=== PATIENT | female | born 1960 | race Caucasian/White ===

== ENCOUNTER 2021-08-04 08:12 | Day surgery (SDC) | payer MEDICAID, OTHER ==
[~2021-08-04 08:12] MED LIST: Lactated Ringers 1,000 ML IV SCH
[2021-08-04] MEDS ORDERED: Midazolam 1 MG/ML 2 ML SDV ONE (09:57)
[2021-08-04] MEDS ORDERED: fentaNYL 100 MCG/2 ML SDV ONE (09:58)
[2021-08-04] MEDS ORDERED: Propofol 200 MG/20 ML SDV ONE (09:58)
[2021-09-01] MEDS ORDERED: Lactated Ringers 1,000 ML IV SCH (07:00)
== END 2021-08-04 11:50 | disposition home or self-care (01) ==
LOC: VM.SDS 08:12
PROVIDERS: ATTEND Student in an Organized Health Care Education/Training Program
DX: Z12.11 Encounter for screening for malignant neoplasm of colon (principal); D12.0 Benign neoplasm of cecum; D12.2 Benign neoplasm of ascending colon; Z80.0 Family history of malignant neoplasm of digestive organs; Z79.899 Other long term (current) drug therapy; Z88.5 Allergy status to narcotic agent; Z88.1 Allergy status to other antibiotic agents; Z98.890 Other specified postprocedural states; Z87.891 Personal history of nicotine dependence
CPT/HCPCS: 00812; J2250; J2704; J3010; J7120

== ENCOUNTER 2023-05-28 11:15 | Emergency (ER) | payer MEDICARE, BC ==
[2023-05-28 11:50] LABS: BASOPHILS PERCENT AUTO 0.8 % (0.2-1.2); EOSINOPHILS ABSOLUTE AUTO 0.1 x10^3/uL (0.0-0.5); EOSINOPHILS PERCENT AUTO 1.1 % (0.0-4.0); HEMATOCRIT 37.5 % (33.0-47.0); HEMOGLOBIN 12.6 g/dL (12.0-16.0); LYMPHOCYTES ABSOLUTE AUTO 1.4 x10^3/uL (1.0-4.8); LYMPHOCYTES PERCENT AUTO 27.1 % (25.0-50.0); MEAN CORPUSCULAR HEMOGLOBIN 30.4 pg (26.0-32.0); MEAN CORPUSCULAR HGB CONC 33.6 g/dL (32.0-36.0); MEAN CORPUSCULAR VOLUME 90.4 fL (78.0-93.0); MONOCYTES ABSOLUTE AUTO 0.7 x10^3/uL (0.0-0.8); MONOCYTES PERCENT AUTO 13.1 % (2.0-11.0); NEUTROPHILS ABSOLUTE AUTO 3.1 x10^3/uL (1.8-7.7); NEUTROPHILS PERCENT AUTO 57.9 % (50.0-80.0); PLATELET COUNT,PLT 207 x10^3/uL (130-400); RED BLOOD CELL COUNT 4.15 x10^6/uL (4.00-5.50); WHITE BLOOD CELL COUNT,WBC 5.3 x10^3/uL (4.0-10.0)
[2023-05-28 12:09] LABS: A/G RATIO 1.09; ALANINE AMINOTRANSFERASE,ALT 23 U/L (14-59); ALBUMIN 3.6 g/dL (3.4-5.0); ALKALINE PHOSPHATASE 47 U/L (46-116); ASPARTATE AMNIOTRANSFERASE,AST 20 U/L (15-37); BILIRUBIN TOTAL 0.2 mg/dL (0.2-1.0); BLOOD UREA NITROGEN,BUN 14 mg/dL (7-18); CALCIUM 8.8 mg/dL (8.5-10.1); CARBON DIOXIDE,CO2 31 mmol/L (21-32); CHLORIDE,CL 100 mmol/L (98-107); CREATININE 0.7 mg/dL (0.55-1.02); GLUCOSE RANDOM 72 mg/dL (70-99); POTASSIUM,K 3.7 mmol/L (3.5-5.1); PROTEIN TOTAL,TP 6.9 g/dL (6.4-8.2); SODIUM,NA 137 mmol/L (136-145)
[2023-05-28 12:10] LABS: ANION GAP 9.7 mmol/L (5-15); ESTIMATED GFR 96 mL/min (>=60)
== END 2023-05-28 12:25 | disposition home or self-care (01) ==
LOC: VM.ED 11:15
DX: I10 Essential (primary) hypertension (principal); Z88.8 Allergy status to other drugs, medicaments and biological substances; Z79.899 Other long term (current) drug therapy
CPT/HCPCS: 36415; 80053; 85025; 93005; 93010; 99284; 99285

== ENCOUNTER 2024-07-31 06:37 | Day surgery (SDC) | payer MEDICARE, BC ==
[2024-07-31] MEDS: Lactated Ringers 1,000 ML IV SCH (07:00)
[2024-07-31] MEDS ORDERED: fentaNYL 100 MCG/2 ML SDV ONE (08:23)
[2024-07-31] MEDS ORDERED: Propofol 200 MG/20 ML SDV ONE (08:23)
[2024-07-31] MEDS ORDERED: Midazolam 1 MG/ML 2 ML SDV ONE (08:23)
== END 2024-07-31 11:27 | disposition home or self-care (01) ==
LOC: VM.SDS 06:37
PROVIDERS: ATTEND Student in an Organized Health Care Education/Training Program
DX: Z12.11 Encounter for screening for malignant neoplasm of colon (principal); D12.2 Benign neoplasm of ascending colon; I10 Essential (primary) hypertension; Z80.0 Family history of malignant neoplasm of digestive organs; Z86.0101 Personal history of adenomatous and serrated colon polyps; E26.9 Hyperaldosteronism, unspecified; Z79.899 Other long term (current) drug therapy; Z88.0 Allergy status to penicillin
CPT/HCPCS: 00811; 88305; J2250; J2704; J3010; J7120